=== PATIENT | male | born 1965 | race Caucasian/White ===

== ENCOUNTER 2016-12-04 02:09 | Emergency (ER) | payer BC ==
[2016-12-04] MEDS ORDERED: LIDOCAINE HCL 20 ML UDC PO ONE (03:07)
[2016-12-04] MEDS ORDERED: MAG HYDROX/ALUMINUM HYD/SIMETH 30 ML UDC PO ONE (03:07)
[2016-12-04] MEDS ORDERED: BELLADONNA ALKALOIDS/PHENOBARB 60 ML BTL PO ONE (03:07)
[2016-12-04 03:08] LABS: Anion Gap 18.4 mmol/L (6.8-13.8); BUN/Creatinine Ratio 7.1 (9.0-21.6); Blood Urea Nitrogen 6 mg/dL (6-23); Calcium * 8.6 mg/dL (7.9-10.9); Carbon Dioxide 23.6 mmol/L (24-32.6); Chloride 99 mmol/L (97-106); Estimated Creat Clear 120.2; Glucose * 101 mg/dL (70-110); Sodium 138 mmol/L (132-142)
[2016-12-04 03:11] LABS: Troponin I Less than 0.017 ng/ml (0.00-0.10)
[2016-12-04] MEDS ORDERED: PANTOPRAZOLE SODIUM 40 MG TABLET.EC PO ONE (03:29)
[2016-12-04] MEDS ORDERED: POTASSIUM CHLORIDE 20 MEQ TABLET.SA PO ONE (03:29)
[2016-12-04] MEDS ORDERED: PANTOPRAZOLE SODIUM 40 MG TABLET.EC ONE (03:35)
[2016-12-04] MEDS ORDERED: POTASSIUM CHLORIDE 20 MEQ TABLET.SA ONE (03:35)
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
[2016-12-04 06:32] VITALS: BP 108/74
== END 2016-12-04 06:30 | disposition home or self-care (01) ==
LOC: ER 02:09
DX: K21.9 Gastro-esophageal reflux disease without esophagitis (principal); F10.129 Alcohol abuse with intoxication, unspecified; Y04.2XXA Assault by strike against or bumped into by another person, initial encounter; Y93.9 Activity, unspecified; Y92.9 Unspecified place or not applicable
CPT/HCPCS: 36415; 80048; 84484; 93005; 99284; G0481

== ENCOUNTER 2016-12-14 10:34 | Emergency (ER) | payer BC ==
[2016-12-14 10:59] LABS: Hematocrit 45.5 % (42.0-52.0); Hemoglobin 16.8 gm/dL (13.5-18.0); Mean Cell Volume 84.4 fl (78-100); Mean Corpuscular Hemoglobin 31.2 pg (27-31); Mean Corpuscular Hgb Conc 36.9 g/dl (32-36); Mean Platelet Volume 10.2 fl (6.0-9.5); Neutrophil # 3.9 K/mm3 (1.3-6.0); Neutrophil % 65.8 % (42-75.0); Platelet Count 232 K/mm3 (150-450); Red Blood Count 5.39 M/mm3 (4.7-6.0)
[2016-12-14] MEDS ORDERED: KETOROLAC TROMETHAMINE 30 MG/ML VIAL IV ONE (11:05)
--- NOTE | 2016-12-14 11:05 | ERNOTE ---
Chest Pain/Cardiac HPI Date of Service: 12/14/16 Chief Complaint: Chest Pain Time Seen by Provider: 12/14/16 10:49 Immunizations: IMMUNIZATION HX Immunizations Up to Date Yes History of Influenza Vaccine No Hx Pneumococcal Vaccination No Allergies/Adverse Reactions: Allergies No Known Allergies Allergy (Verified 12/14/16 10:46) Home Medications: HOME MEDICATIONS Pantoprazole Sodium [Protonix] 20 mg PO DAILY #30 tab 12/04/16 [Last Taken Unknown] Omeprazole 20 mg PO BID #60 tablet. 12/14/16 [Last Taken Unknown] predniSONE [Prednisone] See Taper PO DAILY #20 tablet 12/14/16 [Last Taken Unknown] Narrative: Patient presents to ED Date (Duration): 11/30/16 Time (Timing): 08:00 Timing: constant, getting worse Severity/Quality: sharp Location: central Body Front/Back Adult: 1 - severe chest pain substernal more leftward Chest Pain Radiation: no radiation Activities at Onset: activity Modifying Factors - Improves: Present: nothing Modifying Factors - Worsens: Present: movement Nitro Today/Relief: no nitro taken today Associated Symptoms: Present: denies symptoms Prior Chest Pain/Cardiac Workup: Reports: no prior cardiac workup Prior Treatment: Reports: other - none Review of Systems - Review of Systems Constitutional: Present: no symptoms reported EYE: Present: no symptoms reported ENT: Present: no symptoms reported Respiratory: Present: no symptoms reported Cardiology: Present: no symptoms reported Gastrointestinal/Abdominal: Present: no symptoms reported Genitourinary: Present: no symptoms reported Musculoskeletal: Present: no symptoms reported Neurological: Present: no symptoms reported Endocrine: Present: no symptoms reported Hematologic/Lymphatic: Present: no symptoms reported Psych: Present: no symptoms reported All Other Systems: All systems neg except as marked - Narrative Narrative: Reviewed pmh, psh, sh, meds & allergies - Patient's Past Medical History Patient History - Medical: No pertinent hx Patient History - Cardiac/Respiratory: No pertinent hx Patient History - Cancer: No Hx of Cancer Patient History - Surgical Procedures: Other Patient History - Other: None - Social History Living Situations: home Psych History: No pertinent hx Alcohol Use: none Drug Use: none - Immunizations Immunizations Up to Date: Yes Hx Pneumococcal Vaccination: No History of Influenza Vaccine: No Physical Exam - Physical Exam General Appearance: Present: wd/wn, mild distress Eye Exam: Normal inspection: bilateral, PERRL: bilateral, EOMI: bilateral Ears, Nose, Throat: Present: normal ENT inspection, normal pharynx Neck: Present: normal inspection, nontender Respiratory: Present: no respiratory distress, normal breath sounds, no accessory muscle use Cardiovascular/Chest: Present: regular rate, rhythm, no murmur, normal peripheral pulses, other - sternal chest pain reproducible Peripheral Pulses: N=norm/S=strong/W=weak/B=bound/A=absent: Carotid (R): Normal , Carotid (L): Normal, Radial (R): Normal, Radial (L): Normal Gastrointestinal/Abdominal: Present: normal bowel sounds, nontender Rectal Exam: Present: deferred Male Genitals Exam: Present: deferred Extremity Exam: Present: normal inspection, non-tender, normal range of motion, no edema Neurological Exam: Present: alert, oriented, normal mood/affect, no motor/ sensory deficits Skin Exam: Present: normal color, warm/dry Lymphatic Exam: Present: no adenopathy ED Progress - Results and Orders Patient's Lab Results:: I have reviewed the patient's lab results. Results and Orders: Laboratory Tests 12/14/16 12/14/16 12/14/16 10:50 10:50 10:50 WBC 6.0 RBC 5.39 Hgb 16.8 Hct 45.5 MCV 84.4 MCH 31.2 H MCHC 36.9 H RDW 12.0 Plt Count 232 MPV 10.2 H Immature Gran % (Auto) 0.30 Immature Gran # (Auto) 0.02 Neutrophils % 65.8 Lymphocytes % 19.5 L Monocytes % 8.5 Eosinophils % 5.2 H Basophils % 0.7 Nucleated RBC % 0.0 PT 10.6 INR (Anticoag Therapy) 1.02 PTT ([place]) 27.6 Sodium 141 Plasma Sodium 141 Potassium 3.9 D Chloride 102 Carbon Dioxide 30.1 Anion Gap 12.8 BUN 11 D Creatinine 1.01 Est GFR (Non-Af Amer) 83 BUN/Creatinine Ratio 10.9 Random Glucose 108 Calcium 9.8 Calcium Adj for Albumin 9.5 Total Bilirubin 0.9 AST 18 ALT 18 L Alkaline Phosphatase 113 Troponin I Less than 0.017 Total Protein 8.1 Albumin 4.0 - Vital Signs Patient's Vital Signs:: I have reviewed the patient's vital signs. Vital Signs: Vital Signs 12/14/16 12/14/16 10:42 10:47 Temperature 37.0 C Pulse Rate 87 104 H Respiratory 17 22 H Rate Blood Pressure 136/83 136/83 O2 Sat by Pulse 94 94 Oximetry - EKG EKG: NSR, no ST T wave changes EKG read: Reviewed by me - notable sinus at rate of 79, non specific conduction delay - X-Ray X-Ray #1 X-Ray: chest Interpretation: Reviewed by me X-ray Comments: chest xray reviewed [facility] PATIENT RADIOLOGY STUDY REPORT Patient Patient Name:DUSTIN ANTHONY Date: 1965 Sex: M Order Number: [id number] Unique Exam ID: [id number] Exam Requested: CXRPALAT - Chest PA Lateral * Date Scheduled: 12-14-2016 10:41 AM Study Priority: Requesting Service: Requesting Physician: Shelby Stout Reason for Exam: Chest Pain Radiological Report : [facility] [address] [place] [address] NAME: DUSTIN ANTHONY : 1965 MR #: [id number] CC: Shelby Stout DO LOC: ER [facility] DATE: X-RAY REPORT [id number] RAD/Chest PA Lateral * Exam Date: 12/14/2016 10:41 Ordering Physician: Shelby Stout HISTORY: Chest Pain for one week TWO VIEW CHEST Comparison: NONE Technique: Upright frontal and lateral views of the chest were obtained. Findings: The cardiac silhouette is within normal limits of size. The mediastinum and hilum are with in normal limits. The lung paul are clear. I do not see evidence for an infiltrate, effusion , definable pneumothorax, subcutaneous emphysema, or pulmonary edema. I'm not convinced of definable acute osseous abnormality on this chest film. IMPRESSION: 1. NO ACUTE CARDIOPULMONARY PROCESS. Electronically signed by Cyrus Lujan M.D.. Cyrus Lujan MD Dict: 12/14/16 1147 Typed: 12/14/16 1147/ - Progress/Reassessment Chief Complaint: Chest Pain Progress:: Improved Plan - Plan Plan: Patient is stable for discharge. Departure - Departure Clinical Impression: Costochondral chest pain GERD (gastroesophageal reflux disease) Qualifiers: Esophagitis presence: without esophagitis Qualified Code(s): K21.9 - Gastro- esophageal reflux disease without esophagitis Disposition: Home self-care Instructions: Chest Wall Pain, [id number], Costochondritis, [id number] Additional Instructions: make appointment with new provider as soon as possible Referrals: Chelsi Corbett, JUAN J [Non Staff Physicians] - Prescriptions: Omeprazole 20 mg PO BID #60 tablet. predniSONE [Prednisone] See Taper PO DAILY #20 tablet
[2016-12-14] MEDS ORDERED: KETOROLAC TROMETHAMINE 30 MG/ML VIAL ONE (11:07)
[2016-12-14 11:13] LABS: Prothrombin Time (Patient) 10.6 Seconds (9.4-11.4)
[2016-12-14 11:15] LABS: INR 1.02 INR (0.90-1.10); Partial Thrombolplastin Time 27.6 Seconds (24-32)
[2016-12-14 11:22] LABS: ALT 18 U/L (19-67); AST 18 U/L (0-48); Alkaline Phosphatase * 113 U/L (50-170); Anion Gap 12.8 mmol/L (6.8-13.8); BUN/Creatinine Ratio 10.9 (9.0-21.6); Bilirubin, Total 0.9 mg/dL (0.0-1.1); Blood Urea Nitrogen 11 mg/dL (6-23); Ca. Corrected For Albumin 9.5 mg/dL (8.4-10.2); Calcium * 9.8 mg/dL (7.9-10.9); Carbon Dioxide 30.1 mmol/L (24-32.6); Chloride 102 mmol/L (97-106); Glucose * 108 mg/dL (70-110); Potassium 3.9 mmol/L (3.4-4.6); Sodium 141 mmol/L (132-142); Total Protein 8.1 gm/dL (6.2-8.2)
[2016-12-14 11:23] LABS: Troponin I Less than 0.017 ng/ml (0.00-0.10)
[2016-12-14 13:30] VITALS: BP 126/75
== END 2016-12-14 13:22 | disposition home or self-care (01) ==
LOC: ER 10:34
DX: R07.89 Other chest pain (principal)